=== PATIENT | female | born 1935 | race Caucasian/White ===

== ENCOUNTER 2018-02-19 05:45 | Inpatient (IN) | payer OTHER ==
[~2018-02-19] VITALS: Ht 162.6 cm; Wt 58.7 kg
[~2018-02-19 05:45] MED LIST: ALENDRONATE SOD70 MG PO; AMLODIPINE BESY10 MG PO; AMLODIPINE BESYL5 MG PO; ASPIR 8181 M1 PO; ASPIRIN81 M2 PO; BAYER ASPIRIN325 MG PO; COZAAR100 MG PO; EXFORGE 10/31 TABLET PO; GLUCOPHAGE500 MG PO; HYDROCHLOROTHIA25 MG PO; LEVOTHYROXINE25 MCG PO; LEVOTHYROXINE50 MCG PO; LOPRESSOR25 MG PO; LOSARTAN POTAS100 MG PO; LOVASTATIN20 MG PO; METFORMIN HCL500 M1 PO; METFORMIN HCL500 MG PO; METOPROLOL TART25 MG PO; NEXIUM40 MG PO; NORVASC10 MG PO; PREVACID30 MG PO; PROTONIX40 MG PO; TOPROL XL100 MG PO; VITAMIN D32000 UNIT PO; ZETIA10 MG; ZOFRAN ODT4 MG PO
[2018-02-19 06:06] LABS: APPEARANCE SL.HAZY ((CLEAR)); BILIRUBIN NEGATIVE; BLOOD NEGATIVE; COLOR YELLOW ((YELLOW)); GLUCOSE (STRIP) NEGATIVE; KETONES NEGATIVE; LEUKOCYTES LARGE; NITRITE NEGATIVE; PROTEIN (STRIP) 30; SPECIFIC GRAVITY 1.004 (1.000-1.030); UROBILINOGEN 0.2 MG/DL (0.2-1.0)
[2018-02-19 06:13] LABS: BACTERIA RARE /HPF; EPITHELIAL CELLS NONE SEEN /HPF; MUCUS TRACE /LPF; RED BLOOD CELLS 0-5 /HPF (0-5); UCUL ADDED? YES; WHITE BLOOD CELLS 20-30 /HPF (0-5)
[2018-02-19 06:24] LABS: HEMATOCRIT 39.6 % (36.0-46.0); HEMOGLOBIN 13.8 G/DL (11.9-15.5); MCH 29.8 PG (29.0-34.0); MCHC 34.8 G/DL (30.0-36.0); MCV 85.5 FL (83-99); PLATELET COUNT 223 K/uL (156-360); RBC DIS.WIDTH-CV 12.4 % (11.8-14.6); RBC DIS.WIDTH-SD 38.5 % (39-53); RED BLOOD COUNT 4.63 M/uL (3.80-5.20)
[2018-02-19 06:35] LABS: CHLORIDE 99 mEq/L (99-109); POTASSIUM 3.4 mEq/L (3.7-5.4); SODIUM 133 mEq/L (136-147)
[2018-02-19 06:37] LABS: GLUCOSE 194 mg/dL (70-99)
[2018-02-19 06:41] LABS: CREATININE 1.1 mg/dL (0.6-1.3); GFR ESTIMATE (CALCULATED) 50 mL/min/
[2018-02-19 06:42] LABS: UREA NITROGEN (BUN) 13 mg/dL (9-23)
[2018-02-19 07:17] LABS: TROP-I INTERPRETATION NEGATIVE; TROPONIN-I 0.12 ng/mL (0.0-0.30)
[2018-02-19] MEDS ORDERED: FISH OIL 1,0001 EA10 PO (07:42)
[2018-02-19] MEDS ORDERED: LOSARTAN POTAS100 MG PO (07:42)
[2018-02-19] MEDS ORDERED: FENOFIBRATE200 M1 PO (07:47)
[2018-02-19] MEDS ORDERED: IBANDRONATE SO150 MG PO (10:03)
[2018-02-19 11:40] VITALS: BP 149/67
[2018-02-19 13:13] VITALS: BP 125/84
[2018-02-19 15:20] VITALS: BP 116/57
[2018-02-19 19:07] VITALS: BP 121/61
[2018-02-19 23:24] VITALS: BP 113/57
[2018-02-20 03:54] VITALS: BP 120/59
[2018-02-20 07:00] LABS: HEMATOCRIT 33.8 % (36.0-46.0); MCH 29.3 PG (29.0-34.0); MCHC 33.4 G/DL (30.0-36.0); MCV 87.6 FL (83-99); PLATELET COUNT 168 K/uL (156-360); RBC DIS.WIDTH-CV 12.8 % (11.8-14.6); RBC DIS.WIDTH-SD 41.1 % (39-53); RED BLOOD COUNT 3.86 M/uL (3.80-5.20)
[2018-02-20 07:02] VITALS: BP 154/69
[2018-02-20 07:05] LABS: HEMOGLOBIN 11.3 G/DL (11.9-15.5)
[2018-02-20 07:07] LABS: CHLORIDE 105 MEQ/L (99-109); CREATININE 1.2 MG/DL (0.6-1.3); GFR ESTIMATE (CALCULATED) 45 mL/min/; GLUCOSE 125 mg/dL (70-99); POTASSIUM 3.7 MEQ/L (3.7-5.4); SODIUM 135 MEQ/L (136-147); UREA NITROGEN (BUN) 14 mg/dL (9-23)
[2018-02-20 09:56] LABS: TROP-I INTERPRETATION NEGATIVE; TROPONIN-I 0.09 ng/mL (0.0-0.30)
[2018-02-20 11:20] VITALS: BP 175/79
[2018-02-20 15:32] LABS: TROP-I INTERPRETATION NEGATIVE; TROPONIN-I 0.11 ng/mL (0.0-0.30)
[2018-02-20 16:01] VITALS: BP 179/79
[2018-02-20 20:50] VITALS: BP 190/70
[2018-02-20 21:50] LABS: TROP-I INTERPRETATION NEGATIVE; TROPONIN-I 0.13 ng/mL (0.0-0.30)
[2018-02-20 22:03] VITALS: BP 178/74
[2018-02-21 01:01] VITALS: BP 139/65
[2018-02-21 06:33] LABS: BASOPHIL (%) 0.4 % (0-1); EOSINOPHIL (%) 2.1 % (0-5); EOSINOPHIL COUNT 0.2 K/uL (0-0.3); HEMATOCRIT 37.6 % (36.0-46.0); HEMOGLOBIN 12.6 G/DL (11.9-15.5); IMMATURE GRANULOCYTE (%) 0.6 % (0.0-0.7); LYMPHOCYTE (%) 8.7 % (15-42); LYMPHOCYTE COUNT 0.9 K/uL (1.0-2.8); MCH 28.7 PG (29.0-34.0); MCHC 33.5 G/DL (30.0-36.0); MCV 85.6 FL (83-99); MONOCYTE (%) 7.1 % (3-12); MONOCYTE COUNT 0.7 K/uL (0-0.8); NEUTROPHIL (%) 81.1 % (45-76); NEUTROPHIL COUNT 8.1 K/uL (1.8-6.4); PLATELET COUNT 192 K/uL (156-360); RBC DIS.WIDTH-CV 12.4 % (11.8-14.6); RED BLOOD COUNT 4.39 M/uL (3.80-5.20)
[2018-02-21 06:59] LABS: ALBUMIN 3.6 G/DL (3.2-4.8); ALKALINE PHOSPHATASE 36 IU/L (3-129); ALT (GPT) 16 IU/L (3-49); AST (GOT) 15 IU/L (2-34); CHLORIDE 103 MEQ/L (99-109); CREATININE 0.9 MG/DL (0.6-1.3); GFR ESTIMATE (CALCULATED) > 59 mL/min/; GLUCOSE 141 mg/dL (70-99); POTASSIUM 3.6 MEQ/L (3.7-5.4); SODIUM 133 MEQ/L (136-147); TOTAL BILIRUBIN 0.5 MG/DL (0.0-1.0); TOTAL PROTEIN 6.1 G/DL (6.4-8.3); UREA NITROGEN (BUN) 9 mg/dL (9-23)
[2018-02-21 07:23] VITALS: BP 153/70
[2018-02-21] MEDS ORDERED: CEFTIN500 MG PO (08:42)
[2018-02-21] MEDS ORDERED: ZITHROMAX500 MG PO (08:42)
== END 2018-02-21 12:45 | disposition home health service (06) | DRG 193 ==
LOC: EME → EDBD 05:45 → 5EAST 08:48 → EDOF 08:48 → ENRESERV 08:49 → 5EAST 11:43 → ENPENDDIS 02-21 → 5EAST 02-21 12:45
PROVIDERS: Emergency Medicine; Hospitalist
DX: J15.9 Unspecified bacterial pneumonia (principal); J96.01 Acute respiratory failure with hypoxia; N39.0 Urinary tract infection, site not specified; F05 Delirium due to known physiological condition; E03.9 Hypothyroidism, unspecified; E11.9 Type 2 diabetes mellitus without complications; E78.5 Hyperlipidemia, unspecified; E86.0 Dehydration; G30.9 Alzheimer's disease, unspecified; F02.80 Dementia in other diseases classified elsewhere, unspecified severity, without behavioral disturbance, psychotic disturbance, mood disturbance, and anxiety; I25.10 Atherosclerotic heart disease of native coronary artery without angina pectoris; I50.9 Heart failure, unspecified; I11.0 Hypertensive heart disease with heart failure; I71.2 Thoracic aortic aneurysm, without rupture; K21.9 Gastro-esophageal reflux disease without esophagitis; D64.9 Anemia, unspecified; I25.2 Old myocardial infarction; Z95.0 Presence of cardiac pacemaker; Z95.5 Presence of coronary angioplasty implant and graft; Z95.1 Presence of aortocoronary bypass graft; Z90.49 Acquired absence of other specified parts of digestive tract; Z87.01 Personal history of pneumonia (recurrent); Z88.5 Allergy status to narcotic agent; Z88.6 Allergy status to analgesic agent; Z79.84 Long term (current) use of oral hypoglycemic drugs; Z79.82 Long term (current) use of aspirin; Z86.14 Personal history of Methicillin resistant Staphylococcus aureus infection; Z83.3 Family history of diabetes mellitus
CPT/HCPCS: 71046; 71275; 80048; 80053; 81003; 83605; 84484; 85025; 85027; 85379; 87040; 87077; 87086; 87186; 87449; 93005; 93970; 97530 GO; 99202; 99281; 99285; J0456; J0696; J1650; J2060; J2543; J3370; J7030